=== PATIENT | female | born 1995 | race African-American/Black ===

== ENCOUNTER 2018-12-10 23:51 | Emergency (ER) | payer OTHER ==
[~2018-12-10] VITALS: Ht 152.4 cm; Wt 44.5 kg
[2018-12-10 23:55] VITALS: BP 119/59
--- NOTE | 2018-12-11 00:40 | PHYS DOC ---
Past Medical History Past Medical History: No Pertinent History Past Surgical History: No Surgical History Alcohol Use: None Drug Use: None Adult General Chief Complaint Chief Complaint: THUMB HPI HPI 23 y/o female presents to ER for c/o rt thumb pain after smashing in a door earlier today. She has bruising to rt nail bed- she reports she didn't injure any other finger or her wrist. Pt reports she took ibuprofen after injury w/minimal relief in pain. She has been able to bend rt thumb. Review of Systems Review of Systems Constitutional: Denies fatigue Musculoskeletal: Reports rt thumb pain at nail bed- w/bruising at base of nail Integument: Denies abrasions/laceration/swelling Neurologic: Denies focal weakness or sensory changes [] All other systems were reviewed and found to be within normal limits, except as documented in this note. Current Medications Current Medications Current Medications Medications (Trade) Dose Ordered Sig/Gilberto Start Time Stop Time Status Last Admin Dose Admin Acetaminophen (Tylenol) 650 mg 1X ONCE 12/11/18 01:00 12/11/18 01:01 DC 12/11/18 00:29 650 MG Allergies Allergies Allergies Coded Allergies Type Severity Reaction Last Updated Verified No Known Drug Allergies 12/11/18 No Physical Exam Physical Exam Constitutional: Well developed, well nourished, no acute distress, non-toxic appearance. [] HENT: Normocephalic, atraumatic, oropharynx moist Eyes: Pupils equal, conjunctiva normal, no discharge. [] Neck: Normal range of motion, supple, no stridor. Lungs & Thorax: Resp. equal/nonlabored Skin: Warm, dry Extremities: No cyanosis, no clubbing, ROM intact, no edema. Bruising at base of rt thumb nail bed- less than 1/4 of nail. Full ROM of all rt thumb joints. No bleeding/abrasions. 2+ radial pulse rt upper extrem. Neurologic: Alert and oriented X 3, normal motor function, normal sensory function, no focal deficits noted. [] Psychologic: Affect normal, judgement normal, mood normal. [] Current Patient Data Vital Signs EKG EKG [] Radiology/Procedures Radiology/Procedures [] Course & Med Decision Making Course & Med Decision Making Pertinent Imaging studies reviewed. (See chart for details) Patient was evaluated in the ER for complaints of right thumb/injury. Xray was obtained and was viewed by Dr. Carlos with no obvious displaced fxs/dislocation. This was discussed with pt. She remains PMS intact in rt upper extremity. She was provided with tylenol and ice pack while xray pending. Discussed plans for aluminum splint and pt to f/u with her PCP and/or orthop. if sxs persist or with concerns. Will provide communicty/physician resource sheet with d/c paperwork. Discussed ice application and use of tylenol/ibuprofen PRN. Education provided on s&s to return to ER for and d/c instructions were discussed. Pt was in no distress during d/c discussion and did have ROM in rt thumb- although reported pain with movements. Dragon Disclaimer Dragon Disclaimer This electronic medical record was generated, in whole or in part, using a voice recognition dictation system. Departure Departure Impression: Primary Impression: Crushing injury of thumb, right Disposition: 01 HOME, SELF-CARE Condition: STABLE Referrals: NO PCP (PCP) Patient Instructions: Crush Injury, Fingers or Toes Additional Instructions: Tylenol and/or ibuprofen as needed for pain. Apply ice pack every 3-4 hours for 20-30 minutes at a time to affected area. Wear aluminum splint for 1-2 days to protect right thumb- take off multiple times daily and perform range of motion with thumb joints to prevent stiffening of joint. If symptoms persist follow-up with orthopedic doctor for re-evaluation and further care. KIEL DIAZ APRN Dec 11, 2018 00:40
[2018-12-11] MEDS ORDERED: ACETAMINOPHEN 325 MG TABLET. PO ONE (01:00)
--- NOTE | 2018-12-11 01:22 | RAD ---
Indication:CLOSED FINGER IN CAR DOOR TECHNIQUE: 3 views of right first finger COMPARISON: None FINDINGS/ impression: No acute fracture or dislocation. Electronically signed by: Rony Cruz DO (12/11/2018 1:19 AM) [id number]
== END 2018-12-11 01:07 | disposition home or self-care (01) ==
LOC: ER 23:51
DX: S60.011A Contusion of right thumb without damage to nail, initial encounter (principal); W23.0XXA Caught, crushed, jammed, or pinched between moving objects, initial encounter; Y93.89 Activity, other specified; Y92.89 Other specified places as the place of occurrence of the external cause; Y99.8 Other external cause status
CPT/HCPCS: 29125; 73140; 99283

== ENCOUNTER 2021-04-29 15:08 | Observation (INO) | payer BC ==
[2021-04-29 16:14] LABS: BILIRUBIN,URINE NEGATIVE (NEG); CLARITY,URINE CLOUDY; COLOR,URINE YELLOW; NITRITE,URINE NEGATIVE (NEG); PROTEIN,URINE NEGATIVE (NEG-TRACE)
[2021-04-29] MEDS ORDERED: IV RINGERS,LACTATED 1000ML 1,000 ML IV SCH (16:15)
[2021-04-29 16:34] LABS: BACTERIA,URINE MODERATE /HPF (0-FEW); RBC,URINE RARE /HPF (0-2)
== END 2021-04-29 17:46 | disposition home or self-care (01) ==
LOC: 3 SO LND 15:08
PROVIDERS: ADMIT Obstetrics & Gynecology; ATTEND Obstetrics & Gynecology
DX: O26.893 Other specified pregnancy related conditions, third trimester (principal); R10.2 Pelvic and perineal pain; R10.30 Lower abdominal pain, unspecified; Z3A.30 30 weeks gestation of pregnancy
CPT/HCPCS: 81001; 87086; G0378; G0379; 59025

== ENCOUNTER → 2021-05-15 | Outpatient (CLI) | payer BC ==
[2021-05-15 11:56] LABS: BASO % 1 % (0-3); EOS # 0.1 x10^3/uL (0.0-0.7); EOS % 2 % (0-3); HEMATOCRIT 33.5 % (36.0-47.0); HEMOGLOBIN 11.5 g/dL (12.0-15.5); LYMPH # 2.8 x10^3/uL (1.0-4.8); LYMPH % 37 % (24-48); MEAN CORPUSCULAR HEMOGLOBIN 32 pg (25-35); MEAN CORPUSCULAR HGB CONC 34 g/dL (31-37); MEAN CORPUSCULAR VOLUME 94 fL (79-100); MONO # 0.8 x10^3/uL (0.0-1.1); MONO % 11 % (0-9); NEUT # 3.6 x10^3/uL (1.8-7.7); NEUT % 49 % (31-73); PLATELET COUNT 196 x10^3/uL (140-400); RED BLOOD COUNT 3.55 x10^6/uL (3.50-5.40); RED CELL DISTRIBUTION WIDTH 13.4 % (11.5-14.5); WHITE BLOOD COUNT 7.4 x10^3/uL (4.0-11.0)
== END ==
LOC: LAB 05-10 15:19
PROVIDERS: ATTEND Obstetrics & Gynecology
DX: Z34.93 Encounter for supervision of normal pregnancy, unspecified, third trimester (principal)
CPT/HCPCS: 36415; 82947; 82950; 85025